=== PATIENT | female | born 1995 | race Caucasian/White ===

== ENCOUNTER 2023-05-14 22:12 | Emergency (ER) | payer OTHER ==
[~2023-05-14] VITALS: Ht 162.6 cm; Wt 93.0 kg
[2023-05-14 22:41] VITALS: BP 135/80; PULSE 84; RESP 16; TEMP 98; O2SAT 100
--- NOTE | 2023-05-14 22:46 | NUR ---
TO LOBBY FOLLOWING TRIAGE
--- NOTE | 2023-05-15 01:34 | NUR ---
PATIENT AMBULATED TO BED 3.
[2023-05-15 01:39] VITALS: TEMP 98
--- NOTE | 2023-05-15 01:48 | NUR ---
PATIENT IS A 28/F WHO CAME IN DUE TO 1 WEEK HISTORY OF NON-PRODUCTIVE COUGH. NO CHEST PAIN, SOB, FEVER, COLDS NOTED. PATIENT WENT TO URGENT CARE 3 DAYS AGO AND WAS PRESCRIBED WITH BENZONATATE BUT SYMPTOMS STILL PERSISTED. PMHX: LAURA FALL
[2023-05-15] MEDS ORDERED: BPM/118S33 PO (01:51)
[2023-05-15] MEDS ORDERED: MENT5LOZ MM (01:51)
[2023-05-15] MEDS ORDERED: DM/P237L PO (01:53)
[2023-05-15 02:15] VITALS: BP 122/77; PULSE 73; RESP 13; O2SAT 99
--- NOTE | 2023-05-15 02:15 | NUR ---
Patient discharged with v/s stable. Written and verbal after care instructions given and explained. Patient alert, oriented and verbalized understanding of instructions. Ambulatory with steady gait. All questions addressed prior to discharge. ID band removed. Patient advised to follow up with PMD. Rx of Cold Multi-Symptom Night Liq & Menthol given. Patient educated on indication of medication including possible reaction and side effects. Opportunity to ask questions provided and answered.
== END 2023-05-15 02:15 | disposition home or self-care (01) ==
LOC: MED 22:12
DX: J06.9 Acute upper respiratory infection, unspecified (principal); Z79.899 Other long term (current) drug therapy
CPT/HCPCS: 99282